=== PATIENT | male | born 1995 | race Caucasian/White ===

== ENCOUNTER 2020-12-24 12:51 | Emergency (ER) | payer OTHER ==
[~2020-12-24] VITALS: Ht 172.7 cm; Wt 77.6 kg
[2020-12-24 12:54] VITALS: BP 107/73
[2020-12-24] MEDS ORDERED: IBU600 MG PO (13:17)
== END 2020-12-24 13:46 | disposition home or self-care (01) ==
LOC: ER 12:51
DX: M79.604 Pain in right leg (principal); M79.605 Pain in left leg; M77.9 Enthesopathy, unspecified